=== PATIENT | male | born 1995 | race Hispanic/Latino ===

== ENCOUNTER → 2018-05-18 | Outpatient (CLI) | payer OTHER ==
--- NOTE | 2018-05-18 15:14 | Diagnostic Imaging Report ---
PROCEDURE:X-RAY RIGHT KNEE, THREE OR MORE VIEWS COMPARISON:None. INDICATIONS:RIGHT KNEE PAIN DURING WEIGHTLIFTING FINDINGS: No acute, displaced fracture or dislocation. Fragmentation of the tibial tuberosity. Joint space is well-maintained, without definite joint effusion. No focal soft tissue abnormality. 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 No acute fractures. Dictated by: Kelvin Craft M.D. on 05/18/2018 at 14:08 Electronically approved by: Kelvin Craft M.D. on 05/18/2018 at 14:08
== END ==
LOC: RAD 12:42
PROVIDERS: ATTEND Family Medicine
DX: M25.561 Pain in right knee (principal)